=== PATIENT | male | born 1995 | race African-American/Black ===

== ENCOUNTER 2018-09-08 09:25 | Emergency (ER) | payer OTHER ==
[2018-09-08 09:39] VITALS: BP 117/55
[2018-09-08] MEDS ORDERED: IBUPROFEN 600 MG TABLET PO ONE (10:14)
[2018-09-08] MEDS ORDERED: CYCLOBENZAPRINE HCL 10 MG TABLET PO ONE (10:14)
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
== END 2018-09-08 10:26 | disposition home or self-care (01) ==
LOC: ER 09:25
DX: M43.6 Torticollis (principal); M54.6 Pain in thoracic spine; V87.7XXA Person injured in collision between other specified motor vehicles (traffic), initial encounter; F17.200 Nicotine dependence, unspecified, uncomplicated
CPT/HCPCS: 99283; L0120